=== PATIENT | male | born 1990 | race Asian ===

== ENCOUNTER → 2024-05-15 | Outpatient (CLI) | payer BC ==
--- NOTE | 2024-05-15 17:34 | XR ---
EXAMINATION TYPE: XR abdomen acute w cxr DATE OF EXAM: 05/15/2024 5:19 PM CLINICAL INDICATION: Male, 33 years old with history of K59.09 OTHER CONSTIPATION; [facility] COMPARISON: None. TECHNIQUE: Two radiographic views of the abdomen (upright and supine) and a frontal chest radiograph were obtained. FINDINGS CHEST: Lungs/Pleura: The lungs are clear. There is no evidence of pleural effusion, focal consolidation or p neumothorax. Mediastinum: Unremarkable. Vasculature: Normal. Heart: Normal in size. Musculoskeletal: The osseous structures are intact. Other findings: No significant. FINDINGS ABDOMEN: Bowel gas pattern: Moderate amount of stool throughout colon. Normal without dilated loops of small o r large bowel. Fecal material and gas are demonstrated throughout the colon and rectum. Abnormal calcifications: None. Musculoskeletal: Severe degeneration changes of the right hip with deformity to the femoral head and acetabulum. Other: None. IMPRESSION: 1. No acute cardiopulmonary process 2. 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 3. Moderate amount of stool throughout the colon. [facility], , 05/15/2024 5:31 PM
== END | disposition home or self-care (01) ==
LOC: RADXRMAIN 16:53
PROVIDERS: ATTEND Family Medicine
DX: M16.11 Unilateral primary osteoarthritis, right hip (principal); K59.09 Other constipation; M87.9 Osteonecrosis, unspecified
CPT/HCPCS: 74022